=== PATIENT | male | born 1945 | race African-American/Black ===

== ENCOUNTER 2016-09-25 12:26 | Inpatient (IN) | payer MEDICARE, OTHER ==
[~2016-09-25] VITALS: Ht 188 cm; Wt 77.1 kg
[2016-09-25 12:59] VITALS: BP 124/73
[2016-09-25 13:08] LABS: BASOPHILS % (AUTO) 1.4 % (0.0-2.0); MEAN CORPUSCULAR HEMOGLOBIN 30.6 PG (27.0-31.0); MEAN CORPUSCULAR HGB CONC 32.8 G/DL (32.0-36.0); MEAN CORPUSCULAR VOLUME 93 FL (80-99); MEAN PLATELET VOLUME 7.2 FL (6.5-10.1); MONOCYTES % (AUTO) 7.4 % (1.0-10.0); NEUTROPHILS % (AUTO) 78.2 % (45.0-75.0); PLATELET COUNT 244 K/UL (150-450); RED BLOOD COUNT 5.03 M/UL (4.70-6.10); RED CELL DISTRIBUTION WIDTH 11.7 % (11.6-14.8); WHITE BLOOD COUNT 9.3 K/UL (4.8-10.8)
[2016-09-25 13:22] LABS: TROPONIN I < 0.30 ng/mL (<=0.30)
[2016-09-25 13:26] LABS: ACETAMINOPHEN < 10 ug/mL (10-30); ALANINE AMINOTRANSFERASE 15 U/L (3-41); ALBUMIN/GLOBULIN RATIO 1.1 (1.0-2.7); ALCOHOL < 10 mg/dL; ANION GAP 12 (5-15); ASPARTATE AMINO TRANSFERASE 27 U/L (5-40); CALCIUM 9.1 mg/dL (8.6-10.2); CARBAMAZEPINE (TEGRETOL) < 2.0 ug/mL (4.0-12.0); CARBON DIOXIDE 24 mEQ/L (20-30); CHLORIDE 104 mEQ/L (98-107); CREATININE 0.9 mg/dL (0.7-1.2); GLOMERULAR FILTRATION RATE > 60 mL/min (>60); HEMOLYSIS 6; POTASSIUM 4.2 mEQ/L (3.4-4.9); SODIUM 140 mEQ/L (135-145); TOTAL PROTEIN 7.2 g/dL (6.6-8.7)
[2016-09-25 14:01] VITALS: BP 131/76
[2016-09-25] MEDS ORDERED: GABAPENTIN300 MG ORAL (14:37)
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
[2016-09-25] MEDS ORDERED: Phenytoin 1,000 MG in NS 275 ML IVPB STA (14:45)
[2016-09-25] MEDS ORDERED: Mylanta II UD 30ml ORAL PRN (15:15)
[2016-09-25] MEDS ORDERED: Zolpidem 5mg tab ORAL PRN (15:15)
[2016-09-25] MEDS ORDERED: NS 275 ML ONE (15:15)
[2016-09-25] MEDS ORDERED: LORazepam Inj 2mg/ml 1ml IV PRN (15:15)
[2016-09-25] MEDS ORDERED: Morphine Sulfate 2mg/ml Inj IVP PRN (15:15)
[2016-09-25] MEDS ORDERED: Tubing IV Cassette IV ONE (15:15)
[2016-09-25] MEDS ORDERED: Phenytoin 250mg/5ml vial ONE (15:15)
[2016-09-25] MEDS ORDERED: Miralax 17gm pkt ORAL PRN (15:15)
[2016-09-25 16:03] VITALS: BP 138/77
[2016-09-25 19:30] VITALS: BP 117/83
[2016-09-25 20:40] VITALS: BP 136/78
[2016-09-25] MEDS: Heparin 5000 units/ml inj SUBQ SCH (23:56)
[2016-09-26] VITALS: BP 126/70
[2016-09-26 04:00] VITALS: BP 124/71
[2016-09-26 07:54] VITALS: BP 112/80
[2016-09-26 07:59] LABS: BASOPHILS % (AUTO) 1.4 % (0.0-2.0); EOSINOPHILS % (AUTO) 0.2 % (0.0-3.0); LYMPHOCYTES % (AUTO) 18.9 % (20.0-45.0); MEAN CORPUSCULAR HEMOGLOBIN 32.6 PG (27.0-31.0); MEAN CORPUSCULAR HGB CONC 34.5 G/DL (32.0-36.0); MEAN CORPUSCULAR VOLUME 94 FL (80-99); MEAN PLATELET VOLUME 7.7 FL (6.5-10.1); MONOCYTES % (AUTO) 8.2 % (1.0-10.0); NEUTROPHILS % (AUTO) 71.3 % (45.0-75.0); PLATELET COUNT 218 K/UL (150-450); RED BLOOD COUNT 5.24 M/UL (4.70-6.10); RED CELL DISTRIBUTION WIDTH 11.9 % (11.6-14.8); WHITE BLOOD COUNT 9.1 K/UL (4.8-10.8)
[2016-09-26 08:20] LABS: ALANINE AMINOTRANSFERASE 13 U/L (3-41); ANION GAP 13 (5-15); ASPARTATE AMINO TRANSFERASE 38 U/L (5-40); CALCIUM 9.4 mg/dL (8.6-10.2); CARBON DIOXIDE 26 mEQ/L (20-30); CHLORIDE 99 mEQ/L (98-107); CREATININE 0.9 mg/dL (0.7-1.2); GLOMERULAR FILTRATION RATE > 60 mL/min (>60); HEMOLYSIS 6; SODIUM 138 mEQ/L (135-145)
[2016-09-26 08:37] LABS: BILIRUBIN,DIRECT 0.3 mg/dL (0.1-0.3)
[2016-09-26] MEDS: Heparin 5000 units/ml inj SUBQ SCH ×2 (09:10→20:21)
--- NOTE | 2016-09-26 10:01 | Diagnostic Imaging Report ---
Indication: Seizure Technique: Contiguous 5 mm thick transaxial imaging of the head obtained in a Siemens Sensation [address] scanner. Soft tissue and bone windows generated. Total Dose length Product (DLP): [address] Dose Index Volume (CTDIvol): 70.38 mGy Comparison: 03/28/2005 Findings: There is mild prominence of the ventricles, basal cisterns, and cerebral sulci consistent with atrophy. Mild, nonspecific, white matter hypoattenuation is noted throughout the brain consistent with chronic small vessel disease. Cystic encephalomalacia noted in the left posterior lateral temporal lobe unchanged from the last exam. There is no midline shift, edema, acute hemorrhage, mass effect, or abnormal extra-axial fluid collections. Bones and extra osseous soft tissues are unremarkable. Small scalp lipoma noted over the left frontal region. Impression: No acute intracranial bleed, mass effect or edema. Mild atrophy of the brain. Nonspecific white matter hypoattenuation probably due to chronic small vessel disease. Small scalp lipoma. The CT scanner at [facility] is accredited by the [employer] and the scans are performed using dose optimization techniques as appropriate to a performed exam including Automatic Exposure control.
[2016-09-26 11:25] VITALS: BP 127/78
--- NOTE | 2016-09-26 12:12 | History and Physical ---
History of Present Illness General Date patient seen: Sep 26, 2016 Reason for Hospitalization: Seizure Present Illness HPI 71 year old male with hx of chronic seizures for the last 10 years, on some seizure meds, brought in by paramedics after an episode of witness seizures. pt is admitted to telemetry for further evaluation. Allergies: Coded Allergies: No Known Allergies (Unverified , 09/25/16) Medication History Scheduled Gabapentin* (Gabapentin*), 300 MG ORAL FOUR TIMES A DAY, (Reported) Patient History Healthcare decision maker Resuscitation status Full Code Advanced Directive on File No Past Medical/Surgical History Past Medical/Surgical History: (1) Seizure disorder (2) TBI (traumatic brain injury) Review of Systems All Other Systems: negative except mentioned in HPI Physical Exam General Appearance: WD/WN, no apparent distress Lines, tubes and drains: peripheral HEENT: normocephalic, atraumatic Neck: non-tender, normal alignment Respiratory/Chest: chest wall non-tender, lungs clear Breasts: no masses Cardiovascular/Chest: normal peripheral pulses Abdomen: normal bowel sounds, non tender Genitourinary/Rectal: normal genital exam, heme negative stool Extremities: normal range of motion Skin Exam: normal pigmentation, cyanotic Last 24 Hour Vital Signs Date Time Temp Pulse Resp B/P Pulse Ox O2 Delivery O2 Flow Rate FiO2 09/26/16 11:25 99.3 76 20 127/78 96 Room Air 09/26/16 08:00 78 09/26/16 07:54 98.2 86 21 112/80 97 Room Air 09/26/16 04:00 98.6 72 18 124/71 97 Room Air 09/26/16 03:51 71 09/26/16 00:00 99.7 70 18 126/70 97 Room Air 09/25/16 23:49 73 09/25/16 20:40 98.9 75 16 136/78 98 Room Air 09/25/16 20:30 98.4 76 12 117/83 96 Room Air 09/25/16 19:30 98.4 76 12 117/83 96 Room Air 09/25/16 16:03 76 12 138/77 96 Room Air 09/25/16 14:01 68 15 131/76 98 Room Air 09/25/16 12:59 98.4 84 15 124/73 98 Room Air 09/25/16 12:45 84 15 Room Air 09/25/16 12:27 99.1 93 17 121/75 98 Room Air Intake and Output 09/25/16 09/26/16 19:00 07:00 Intake Total 295 ml Balance 295 ml IV Total 295 ml # Voids 1 2 Laboratory Tests Test 09/25/16 12:45 09/25/16 14:39 09/26/16 07:25 White Blood Count 9.3 K/UL (4.8-10.8) 9.1 K/UL (4.8-10.8) Red Blood Count 5.03 M/UL (4.70-6.10) 5.24 M/UL (4.70-6.10) Hemoglobin 15.4 G/DL (14.2-18.0) 17.1 G/DL (14.2-18.0) Hematocrit 47.0 % (42.0-52.0) 49.4 % (42.0-52.0) Mean Corpuscular Volume 93 FL (80-99) 94 FL (80-99) Mean Corpuscular Hemoglobin 30.6 PG (27.0-31.0) 32.6 PG (27.0-31.0) H Mean Corpuscular Hemoglobin Concent 32.8 G/DL (32.0-36.0) 34.5 G/DL (32.0-36.0) Red Cell Distribution Width 11.7 % (11.6-14.8) 11.9 % (11.6-14.8) Platelet Count 244 K/UL (150-450) 218 K/UL (150-450) Mean Platelet Volume 7.2 FL (6.5-10.1) 7.7 FL (6.5-10.1) Neutrophils (%) (Auto) 78.2 % (45.0-75.0) H 71.3 % (45.0-75.0) Lymphocytes (%) (Auto) 13.0 % (20.0-45.0) L 18.9 % (20.0-45.0) L Monocytes (%) (Auto) 7.4 % (1.0-10.0) 8.2 % (1.0-10.0) Eosinophils (%) (Auto) 0.0 % (0.0-3.0) 0.2 % (0.0-3.0) Basophils (%) (Auto) 1.4 % (0.0-2.0) 1.4 % (0.0-2.0) Sodium Level 140 mEQ/L (135-145) 138 mEQ/L (135-145) Potassium Level 4.2 mEQ/L (3.4-4.9) 4.0 mEQ/L (3.4-4.9) Chloride Level 104 mEQ/L (98-107) 99 mEQ/L (98-107) Carbon Dioxide Level 24 mEQ/L (20-30) 26 mEQ/L (20-30) Anion Gap 12 (5-15) 13 (5-15) Blood Urea Nitrogen 14 mg/dL (7-23) 12 mg/dL (7-23) Creatinine 0.9 mg/dL (0.7-1.2) 0.9 mg/dL (0.7-1.2) Estimat Glomerular Filtration Rate > 60 mL/min (>60) > 60 mL/min (>60) Glucose Level 115 mg/dL (74-106) H 117 mg/dL (74-106) H Calcium Level 9.1 mg/dL (8.6-10.2) 9.4 mg/dL (8.6-10.2) Total Bilirubin 0.7 mg/dL (0.0-1.2) 1.7 mg/dL (0.0-1.2) H Aspartate Amino Transf (AST/SGOT) 27 U/L (5-40) 38 U/L (5-40) Alanine Aminotransferase (ALT/SGPT) 15 U/L (3-41) 13 U/L (3-41) Alkaline Phosphatase 71 U/L (40-129) 82 U/L (40-129) Troponin I < 0.30 ng/mL (<=0.30) Total Protein 7.2 g/dL (6.6-8.7) 8.0 g/dL (6.6-8.7) Albumin 3.9 g/dL (3.5-5.2) 4.1 g/dL (3.5-5.2) Globulin 3.3 g/dL 3.9 g/dL Albumin/Globulin Ratio 1.1 (1.0-2.7) 1.0 (1.0-2.7) Salicylates Level < 1 mg/dL (10-30) L Acetaminophen Level < 10 ug/mL (10-30) L Phenytoin (Dilantin) Level < 0.8 ug/mL (10-20) L Carbamazepine (Tegretol) Level < 2.0 ug/mL (4.0-12.0) L Phenobarbital Level < 2.4 ug/mL (20.0-40.0) L Serum Alcohol < 10 mg/dL Urine Opiates Screen Negative (NEGATIVE) Urine Barbiturates Screen Negative (NEGATIVE) Phencyclidine (PCP) Screen Negative (NEGATIVE) Urine Amphetamines Screen Negative (NEGATIVE) Urine Benzodiazepines Screen Negative (NEGATIVE) Urine Cocaine Screen Negative (NEGATIVE) Urine Marijuana (THC) Screen Negative (NEGATIVE) Direct Bilirubin 0.3 mg/dL (0.1-0.3) Height (Feet): 6 Height (Inches): 2.00 Weight (Pounds): 170 Medications Current Medications Medications (Trade) Dose Ordered Sig/Juan Carlos Route PRN Reason Start Time Stop Time Status Last Admin Dose Admin Acetaminophen (Tylenol) 650 mg Q4H PRN ORAL fever 09/25/16 15:15 10/25/16 15:14 Al Hydroxide/Mg Hydroxide (Mylanta II) 30 ml Q6H PRN ORAL dyspepsia 09/25/16 15:15 10/25/16 15:14 Dextrose (Dextrose 50%) STAT PRN IV Hypoglycemia 09/25/16 15:15 10/25/16 15:14 Heparin Sodium (Porcine) (Heparin 5000 units/ml) 5,000 units EVERY 12 HOURS SUBQ 09/25/16 21:00 10/25/16 20:59 09/26/16 09:10 Lorazepam (Ativan 2mg/ml 1ml) 2 mg Q1H PRN IV seizures 09/25/16 15:15 10/02/16 15:14 Morphine Sulfate (Morphine Sulfate) 1 mg Q4H PRN IVP For Pain 4-10 09/25/16 15:15 10/02/16 15:14 Ondansetron HCl (Zofran) 4 mg Q6H PRN IVP Nausea & Vomiting 09/25/16 15:15 10/25/16 15:14 Polyethylene Glycol (Miralax) 17 gm HSPRN PRN ORAL Constipation 09/25/16 15:15 10/25/16 15:14 Zolpidem Tartrate (Ambien) 5 mg HSPRN PRN ORAL Insomnia 09/25/16 15:15 10/25/16 15:14 Assessment/Plan Problem List: (1) Uncontrolled seizures ICD Codes: R56.9 - Unspecified convulsions SNOMED: 09740344 (2) TBI (traumatic brain injury) ICD Codes: S06.9X9A - Unspecified intracranial injury with loss of consciousness of unspecified duration, initial encounter SNOMED: [id number], [id number] Qualifiers: Qualified Codes: S06.9X0S - Unspecified intracranial injury without loss of consciousness, sequela Assessment/Plan neuro evaluation resume seizure meds dvt prophylaxis. VAIBHAV OLGUIN Sep 26, 2016 12:12
[2016-09-26] MEDS ORDERED: Miralax 17gm pkt ORAL PRN (15:15)
[2016-09-26] MEDS ORDERED: Zolpidem 5mg tab ORAL PRN (15:15)
[2016-09-26] MEDS ORDERED: LORazepam Inj 2mg/ml 1ml IV PRN (15:15)
[2016-09-26] MEDS ORDERED: Mylanta II UD 30ml ORAL PRN (15:15)
[2016-09-26 16:00] VITALS: BP 132/78
--- NOTE | 2016-09-26 17:08 | Diagnostic Imaging Report ---
Indication: Pain Findings: 3 views of the right shoulder were obtained. The bones are osteopenic. Marginal spurs are noted in the glenohumeral joint a.c. joint. No acute fracture seen. Impression: Osteoarthritis
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
[2016-09-26 20:00] VITALS: BP 153/99
[2016-09-27] VITALS: BP 144/98
[2016-09-27 04:00] VITALS: BP 154/106
[2016-09-27 08:00] VITALS: BP 149/87
[2016-09-27] MEDS: Heparin 5000 units/ml inj SUBQ SCH ×2 (09:41→20:28)
[2016-09-27 12:00] VITALS: BP 143/84
--- NOTE | 2016-09-27 14:11 | Neurology Progress Note ---
Interim History Interim History ROS Limited/Unobtainable: Yes Complaints: forgetful, unstable gait ---new sx Events: confused no sz noted Interim History spoke to room mate---pt went thru long divorce, very anxios, insomnia. Objective Physical Exam Last Vital Signs Date Time Temp Pulse Resp B/P Pulse Ox O2 Delivery O2 Flow Rate FiO2 09/27/16 12:00 98.1 79 20 143/84 97 Room Air General: well developed, no acute distress Head: normocophalic, atraumatic Neck: no rigidity Neurologic Exam Mental Status: awake, alert, normal remote memory, other - forgetful Speech: normal speech, no dysarthia Language: normal language, no aphasia Cranial Nerve II: fundus normal, visual pringle, no papilledema Cranial Nerves III, IV, : PERRLA, EOMI, pupils Cranial Nerve V: normal facial sensations Cranial Nerve VII: normal facial expressions Cranial Nerve VIII: no nystagmus Cranial Nerve IX: gag response Cranial Nerve XI: trapezii function normal Cranial Nerve XII: no tongue atrophy/fasciculations Motor System: no involuntary movement, no muscle wasting Sensory: normal pinprick Coordination: normal finger to nose bilaterally Deep Tendon Reflexes: 0 ankle (L), 0 ankle (R), 0 bicep (L), 0 bicep (R), 0 brachioradialis (L), 0 brachioradialis (R), 0 knee (L), 0 knee (R), 0 tricep (L) , 0 tricep (R) Reflexes: mute plantar (L), mute plantar (R) Gait: other - unsteady Impression/Recommendations Problems: (1) TBI (traumatic brain injury) (2) Seizure disorder Status: not improved Recommendations MRI brain [id number] bid neurontin 600mg q hs EEG KATE VILLA Sep 27, 2016 14:11
--- NOTE | 2016-09-27 14:13 | Neurology Progress Note ---
Interim History Interim History ROS Limited/Unobtainable: Yes Complaints: forgetful, unstable gait ---new sx Events: confused no sz noted Objective Physical Exam Last Vital Signs Date Time Temp Pulse Resp B/P Pulse Ox O2 Delivery O2 Flow Rate FiO2 09/27/16 12:00 98.1 79 20 143/84 97 Room Air General: well developed, no acute distress Head: normocophalic, atraumatic Neck: no rigidity Neurologic Exam Mental Status: awake, alert, normal remote memory, other - forgetful Speech: normal speech, no dysarthia Language: normal language, no aphasia Cranial Nerve II: fundus normal, visual pringle, no papilledema Cranial Nerves III, IV, : PERRLA, EOMI, pupils Cranial Nerve V: normal facial sensations Cranial Nerve VII: normal facial expressions Cranial Nerve VIII: no nystagmus Cranial Nerve IX: gag response Cranial Nerve XI: trapezii function normal Cranial Nerve XII: no tongue atrophy/fasciculations Motor System: no involuntary movement, no muscle wasting Sensory: normal pinprick Coordination: normal finger to nose bilaterally Deep Tendon Reflexes: 0 ankle (L), 0 ankle (R), 0 bicep (L), 0 bicep (R), 0 brachioradialis (L), 0 brachioradialis (R), 0 knee (L), 0 knee (R), 0 tricep (L) , 0 tricep (R) Reflexes: mute plantar (L), mute plantar (R) Gait: other - unsteady Impression/Recommendations Problems: (1) TBI (traumatic brain injury) (2) Seizure disorder Status: not improved Recommendations MRI brain [id number] bid neurontin 600mg q hs EEG KATE VILLA Sep 27, 2016 14:13
[2016-09-27 16:00] VITALS: BP 130/81
--- NOTE | 2016-09-27 16:12 | Pulmonology Progress Note ---
Assessment/Plan Problems: (1) Uncontrolled seizures (2) TBI (traumatic brain injury) Assessment/Plan Keprra started MRI pending f/u neuro recommendations Subjective ROS Limited/Unobtainable: No Interval Events: EEg done, MRI pending Allergies: Coded Allergies: No Known Allergies (Unverified , 09/25/16) Objective Last 24 Hour Vital Signs Date Time Temp Pulse Resp B/P Pulse Ox O2 Delivery O2 Flow Rate FiO2 09/27/16 12:00 98.1 79 20 143/84 97 Room Air 09/27/16 08:00 98.1 78 20 149/87 97 Room Air 09/27/16 04:00 97.8 88 20 154/106 99 Room Air 09/27/16 00:00 97.9 71 20 144/98 97 Room Air 09/26/16 20:00 98.1 83 20 153/99 98 Room Air Intake and Output 09/26/16 09/27/16 19:00 07:00 Intake Total 790 ml Balance 790 ml Intake Oral 790 ml # Voids 2 3 # Bowel Movements 1 General Appearance: WD/WN HEENT: normocephalic, anicteric Respiratory/Chest: chest wall non-tender, lungs clear Cardiovascular: normal peripheral pulses, normal rate Abdomen: normal bowel sounds, soft, non tender Genitourinary: normal external genitalia Extremities: no cyanosis Skin: no lesions Lymphatic: no neck adenopathy Musculoskeletal: normal muscle bulk Current Medications Medications (Trade) Dose Ordered Sig/Juan Carlos Route PRN Reason Start Time Stop Time Status Last Admin Dose Admin Acetaminophen (Tylenol) 650 mg Q4H PRN ORAL fever 09/26/16 15:15 10/26/16 15:14 Al Hydroxide/Mg Hydroxide (Mylanta II) 30 ml Q6H PRN ORAL dyspepsia 09/26/16 15:15 10/26/16 15:14 Dextrose (Dextrose 50%) STAT PRN IV Hypoglycemia 09/26/16 15:15 10/26/16 15:14 Gabapentin (Neurontin) 600 mg BEDTIME ORAL 09/27/16 21:00 10/27/16 20:59 Heparin Sodium (Porcine) (Heparin 5000 units/ml) 5,000 units EVERY 12 HOURS SUBQ 09/26/16 21:00 10/26/16 20:59 09/27/16 09:41 Levetiracetam (Keppra) 500 mg Q12HR ORAL 09/27/16 16:00 10/27/16 15:59 09/27/16 15:55 Lorazepam (Ativan 2mg/ml 1ml) 2 mg Q1H PRN IV seizures 09/26/16 15:15 10/03/16 15:14 Morphine Sulfate (Morphine Sulfate) 1 mg Q4H PRN IVP For Pain 4-10 09/26/16 15:15 10/03/16 15:14 Ondansetron HCl (Zofran) 4 mg Q6H PRN IVP Nausea & Vomiting 09/26/16 15:15 10/26/16 15:14 Polyethylene Glycol (Miralax) 17 gm HSPRN PRN ORAL Constipation 09/26/16 15:15 10/26/16 15:14 Zolpidem Tartrate (Ambien) 5 mg HSPRN PRN ORAL Insomnia 09/26/16 15:15 10/26/16 15:14 VAIBHAV OLGUIN Sep 27, 2016 16:12
--- NOTE | 2016-09-27 17:52 | Cardiology Report ---
APPROVED REPORT EKG Measurement Heart [id number] Normal sinus rhythm Cannot rule out Anterior infarct, age undetermined Abnormal ECG
[2016-09-27 20:00] VITALS: BP 132/84
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
[2016-09-28] VITALS: BP 131/86
[2016-09-28 00:29] LABS: PSA TOTAL < 0.1 ng/mL (< 4.5)
[2016-09-28 04:00] VITALS: BP 143/88
[2016-09-28 08:06] VITALS: BP 121/74
[2016-09-28] MEDS: Heparin 5000 units/ml inj SUBQ SCH ×2 (08:28→20:46)
[2016-09-28 11:45] VITALS: BP 114/77
--- NOTE | 2016-09-28 13:32 | Diagnostic Imaging Report ---
Indication: 71-year-old male inpatient with altered mental status and slurred speech Technique: sagittal T1 fast spin echo, axial T1 FLAIR, axial T2 FLAIR, axial T2 FS PROPELLER, axial T2* GRE, axial diffusion weighted images. ADC and exponential ADC maps generated Comparison: CT brain 09/25/2016 Findings: No abnormal areas of restricted diffusion to suggest acute infarction. No acute hemorrhage or edema. No mass effect nor midline shift. There is age-related enlargement extra axial CSF spaces. There is dolichoectasia of the left vertebral artery. Vascular flow voids are otherwise preserved. There is a tiny old right external capsule lacunar infarct. There is a left maxillary sinus polyp versus mucous retention cyst. Visualized orbits and sinuses are unremarkable Impression: Age-related changes Negative for acute intracranial bleed or mass effect or infarct Possible tiny right basal ganglia lacunar infarct
[2016-09-28] MEDS: Morphine Sulfate 2mg/ml Inj IVP PRN (15:08)
[2016-09-28] MEDS ORDERED: AMBIEN5 MG ORAL (15:51)
[2016-09-28] MEDS ORDERED: KEPPRA500 M3 ORAL (15:51)
[2016-09-28] MEDS ORDERED: NEURONTIN300 MG ORAL (15:51)
[2016-09-28 15:53] VITALS: BP 119/77
--- NOTE | 2016-09-28 15:53 | Pulmonology Progress Note ---
Assessment/Plan Problems: (1) Uncontrolled seizures (2) TBI (traumatic brain injury) Assessment/Plan Keprra started MRI showed Impression: Age-related changes Negative for acute intracranial bleed or mass effect or infarct Possible tiny right basal ganglia lacunar infarct f/u neuro recommendations dc planning Subjective ROS Limited/Unobtainable: No Constitutional: Reports: no symptoms HEENT: Repors: no symptoms Respiratory: Reports: no symptoms Allergies: Coded Allergies: No Known Allergies (Unverified , 09/25/16) Objective Last 24 Hour Vital Signs Date Time Temp Pulse Resp B/P Pulse Ox O2 Delivery O2 Flow Rate FiO2 09/28/16 15:38 97.9 09/28/16 11:45 97.9 78 18 114/77 95 Room Air 09/28/16 08:06 98.4 90 19 121/74 97 Room Air 09/28/16 04:00 96.8 70 18 143/88 99 Room Air 09/28/16 00:00 96.8 76 20 131/86 98 Room Air 09/27/16 20:00 97.2 71 20 132/84 96 Room Air 09/27/16 16:00 98.0 90 18 130/81 96 Room Air Intake and Output 09/27/16 09/28/16 19:00 07:00 Intake Total 820 ml 250 ml Balance 820 ml 250 ml Intake Oral 820 ml 250 ml # Voids 6 1 General Appearance: WD/WN HEENT: normocephalic, atraumatic Respiratory/Chest: chest wall non-tender, lungs clear Cardiovascular: normal peripheral pulses, normal rate Abdomen: normal bowel sounds, soft, non tender Genitourinary: normal external genitalia Extremities: no cyanosis Skin: no rash, no lesions Laboratory Tests 09/27/16 23:25: Prostate Specific Antigen < 0.1, Vitamin B12 Level 251, Methylmalonic Acid [ Pending], Thyroid Stimulating Hormone (TSH) 1.940 Current Medications Medications (Trade) Dose Ordered Sig/Juan Carlos Route PRN Reason Start Time Stop Time Status Last Admin Dose Admin Acetaminophen (Tylenol) 650 mg Q4H PRN ORAL fever 09/26/16 15:15 10/26/16 15:14 Al Hydroxide/Mg Hydroxide (Mylanta II) 30 ml Q6H PRN ORAL dyspepsia 09/26/16 15:15 10/26/16 15:14 Dextrose (Dextrose 50%) STAT PRN IV Hypoglycemia 09/26/16 15:15 10/26/16 15:14 Gabapentin (Neurontin) 600 mg BEDTIME ORAL 09/27/16 21:00 10/27/16 20:59 09/27/16 20:24 Heparin Sodium (Porcine) (Heparin 5000 units/ml) 5,000 units EVERY 12 HOURS SUBQ 09/26/16 21:00 10/26/16 20:59 09/28/16 08:28 Levetiracetam (Keppra) 500 mg Q12HR ORAL 09/28/16 09:00 10/28/16 08:59 09/28/16 08:26 Lorazepam (Ativan 2mg/ml 1ml) 2 mg Q1H PRN IV seizures 09/26/16 15:15 10/03/16 15:14 Morphine Sulfate (Morphine Sulfate) 1 mg Q4H PRN IVP For Pain 4-10 09/26/16 15:15 10/03/16 15:14 09/28/16 15:08 Ondansetron HCl (Zofran) 4 mg Q6H PRN IVP Nausea & Vomiting 09/26/16 15:15 10/26/16 15:14 Polyethylene Glycol (Miralax) 17 gm HSPRN PRN ORAL Constipation 09/26/16 15:15 10/26/16 15:14 Zolpidem Tartrate (Ambien) 5 mg HSPRN PRN ORAL Insomnia 09/26/16 15:15 10/26/16 15:14 VAIBHAV OLGUIN Sep 28, 2016 15:53
[2016-09-28 20:00] VITALS: BP 129/77
[2016-09-29] VITALS: BP 131/89
[2016-09-29 04:00] VITALS: BP 114/70
[2016-09-29 08:00] VITALS: BP 122/78
[2016-09-29] MEDS: Morphine Sulfate 2mg/ml Inj IVP PRN (09:10)
[2016-09-29] MEDS: Heparin 5000 units/ml inj SUBQ SCH (09:15)
[2016-09-29 12:00] VITALS: BP 122/84
--- NOTE | 2016-09-29 14:33 | Neurology Progress Note ---
Interim History Interim History ROS Limited/Unobtainable: No Complaints: feel better Events: no sz noted Objective Physical Exam Last Vital Signs Date Time Temp Pulse Resp B/P Pulse Ox O2 Delivery O2 Flow Rate FiO2 09/29/16 12:00 98.0 86 20 122/84 98 Room Air General: well developed, no acute distress Head: normocophalic, atraumatic Neck: no rigidity Neurologic Exam Mental Status: awake, alert, normal remote memory, other - forgetful Speech: normal speech, no dysarthia Language: normal language, no aphasia Cranial Nerve II: fundus normal, visual pringle, no papilledema Cranial Nerves III, IV, : PERRLA, EOMI, pupils Cranial Nerve V: normal facial sensations Cranial Nerve VII: normal facial expressions, other - R face droop Cranial Nerve VIII: no nystagmus Cranial Nerve IX: gag response Cranial Nerve XI: trapezii function normal Cranial Nerve XII: no tongue atrophy/fasciculations Motor System: no involuntary movement, no muscle wasting Sensory: normal pinprick Coordination: normal finger to nose bilaterally Deep Tendon Reflexes: 0 ankle (L), 0 ankle (R), 0 bicep (L), 0 bicep (R), 0 brachioradialis (L), 0 brachioradialis (R), 0 knee (L), 0 knee (R), 0 tricep (L) , 0 tricep (R) Reflexes: mute plantar (L), mute plantar (R) Gait: other - unsteady Impression/Recommendations Problems: (1) TBI (traumatic brain injury) (2) Seizure disorder Status: stable Recommendations MRI brain done no acute changes [id number] bid neurontin 600mg q hs EEG done no sz noted d/c home KATE VILLA Sep 29, 2016 14:33
--- NOTE | 2016-09-29 19:28 | Pulmonology Progress Note ---
Assessment/Plan Problems: (1) Uncontrolled seizures (2) TBI (traumatic brain injury) Assessment/Plan Keprra started MRI showed Impression: Age-related changes Negative for acute intracranial bleed or mass effect or infarct Possible tiny right basal ganglia lacunar infarct f/u neuro recommendations pt/ot results reviewed dc planning Subjective ROS Limited/Unobtainable: No Constitutional: Reports: no symptoms HEENT: Repors: no symptoms Respiratory: Reports: no symptoms Allergies: Coded Allergies: No Known Allergies (Unverified , 09/25/16) Objective Last 24 Hour Vital Signs Date Time Temp Pulse Resp B/P Pulse Ox O2 Delivery O2 Flow Rate FiO2 09/29/16 12:00 98.0 86 20 122/84 98 Room Air 09/29/16 09:40 96.8 09/29/16 08:00 97.9 93 18 122/78 97 Room Air 09/29/16 04:00 96.8 76 17 114/70 97 Room Air 09/29/16 00:00 98.4 77 18 131/89 95 Room Air 09/28/16 20:00 98.8 19 129/77 94 Room Air Intake and Output 09/28/16 09/29/16 18:59 06:59 Intake Total 620 ml 400 ml Balance 620 ml 400 ml Intake Oral 620 ml 400 ml # Voids 4 2 Objective General Appearance: WD/WN HEENT: normocephalic, atraumatic Respiratory/Chest: chest wall non-tender, normal breath sounds Breasts: no masses Cardiovascular: normal peripheral pulses Abdomen: normal bowel sounds, soft, non tender Genitourinary: normal external genitalia Extremities: no cyanosis Skin: no rash VAIBHAV OLGUIN Sep 29, 2016 19:28
--- NOTE | 2016-09-30 10:22 | Discharge Summary ---
Discharge Summary Hospital Course Date of Admission Sep 25, 2016 at 18:08 Date of Discharge Sep 29, 2016 at 19:04 Admitting Diagnosis SEIZURE HPI Jian Matt is a 71 year old male who was admitted on Sep 25, 2016 at 18: 08 for Seizure Hospital Course [id number] Discharge Discharge Disposition Patient was discharged to SNF/Subacute Facility(03) Discharge Diagnoses: Morena Carter NP Sep 30, 2016 10:22
--- NOTE | 2016-10-01 03:00 | Discharge Summary 2 SIG ---
DATE OF ADMISSION: 09/25/2016 DATE OF DISCHARGE: 09/29/2016 [employer]PERVISOR COMPOSING ROOM: Rodrigue Son M.D. BRIEF HOSPITAL COURSE: The patient is a 71-year-old male with chronic seizure disorder for the past 10 years and on anti seizure medications. He was brought in by paramedics after a witnessed seizure. On arrival to ED, CAT scan of the head showed chronic encephalomalacia. There was no acute traumatic injury. Laboratories showed no leukocytosis with a stable hemoglobin and hematocrit. Urine drug screen was negative. Phenytoin level was less than 0.8, carbamazepine level of 2.0, and phenobarbital level was less than 2.4. He was admitted to telemetry for exacerbation of seizure disorder and was followed by Dr. Son. He was presumably on gabapentin 300 milligrams q.i.d. He was given Keppra 500 milligram b.i.d. and Neurontin 600 milligram nightly. He had an EEG that showed normal awake stage 1 sleep cycle. No paroxysmal events were noted. An MRI of the brain showed age related changes, negative for acute intracranial bleed or mass effect with a possible tiny basal ganglia lacunar infarct. Right shoulder x-ray showed osteoarthritis. There was no paroxysmal events dring hospitalization. He underwent physical and occupational therapy and was eventually discharged to SNF. FINAL DIAGNOSES: 1. Uncontrolled seizures. 2. Acute exacerbation of seizure disorder, possibly secondary to subtherapeutic anticonvulsants. 3. Traumatic brain injury. Ronak Guthrie M.D. I have been assigned to dictate discharge summary on this account and I was not involved in the patient's management. Morena Carter N.P. DR: SHAHRAM JOB#: [id number] CC: MARNIE
== END 2016-09-29 19:04 | DRG 101 ==
LOC: EMR 13:11 → EDBEDREQ 17:44 → 2E 18:08 → 4E 09-26 15:31
DX: G40.919 Epilepsy, unspecified, intractable, without status epilepticus (principal); G51.0 Bell's palsy; Z87.820 Personal history of traumatic brain injury; R26.81 Unsteadiness on feet; M19.011 Primary osteoarthritis, right shoulder
CPT/HCPCS: 36415; 70450; 70551; 80053; 80156; 80184; 80185; 80299; 80300; 80329; 82248; 82607; 82962; 83921; 84153; 84443; 84484; 85025; 93005; 95819; J1165